=== PATIENT | female | born 1985 | race African-American/Black ===

== ENCOUNTER 2018-03-08 10:58 | Day surgery (SDC) | payer OTHER ==
[~2018-03-08] VITALS: Ht 160 cm; Wt 81.6 kg
[2018-03-08] MEDS ORDERED: SODIUM CHLORIDE 0.9% 1,000 ML IVB ONE (11:06)
[2018-03-08] MEDS ORDERED: ONDANSETRON HCL 4 MG/2 ML VIAL IV ONE ×2 (11:15→16:30)
[2018-03-08] MEDS ORDERED: HYDROmorphone HCL 2 MG/ML VL IV ONE (11:15)
[2018-03-08 11:27] LABS: Basophils # (auto) 0.1 uL; Basophils % (auto) 0.4 % (0.0-2.0); Eosinophils # (auto) 0.1 uL; Eosinophils % (auto) 0.7 % (0.0-7.0); Hematocrit 42.4 % (36.0-46.0); Hemoglobin 14.2 g/dL (12.2-16.2); Lymphocytes # (auto) 2.1 uL; Lymphocytes % (auto) 12.1 % (10.0-50.0); Mean Corpuscular Hemoglobin 31.9 pg (28.0-32.0); Mean Corpuscular Hgb Conc. 33.6 g/dL (32.0-36.0); Mean Corpuscular Volume 95.2 fL (80.0-100.0); Monocytes # (auto) 0.6 uL; Monocytes % (auto) 3.5 % (0.0-12.0); Neutrophils # (auto) 14.1 uL; Neutrophils % (auto) 83.3 % (37.0-80.0); Nucleated Red Blood Cells % 0.1 %; Platelet Count (auto) 282 10^3/uL (140-450); Red Blood Cells 4.46 10^6/uL (4.0-5.20); Red Cell Distribution Width 12.7 % (11.8-14.3); White Blood Cell 16.9 10^3/uL (4.4-10.8)
[2018-03-08 11:45] LABS: BUN/Creatinine Ratio 15.8; Bilirubin, Total 1.6 mg/dL (0.2-1.0); Calcium 9.5 mg/dL (8.5-10.1); Potassium 3.4 mmol/L (3.5-5.1); Total Protein 7.9 g/dL (6.4-8.2)
[2018-03-08 11:46] LABS: INR 0.95 (0.9-1.15); Partial Thromboplastin Time 22.5 sec (22.64-33.71); Prothrombin Time 10.4 sec (9.37-12.3)
[2018-03-08] MEDS ORDERED: LACT. RINGERS/OXYTOCIN 20UNITS 1,000 ML IV ONE (14:15)
[2018-03-08 14:17] LABS: Basophils # (auto) 0.1 uL; Basophils % (auto) 0.3 % (0.0-2.0); Eosinophils # (auto) 0 uL; Hematocrit 37.7 % (36.0-46.0); Hemoglobin 12.6 g/dL (12.2-16.2); Lymphocytes # (auto) 0.6 uL; Lymphocytes % (auto) 3.5 % (10.0-50.0); Mean Corpuscular Hemoglobin 32.1 pg (28.0-32.0); Mean Corpuscular Hgb Conc. 33.4 g/dL (32.0-36.0); Mean Corpuscular Volume 96.2 fL (80.0-100.0); Monocytes # (auto) 0.3 uL; Monocytes % (auto) 1.9 % (0.0-12.0); Neutrophils # (auto) 17.2 uL; Neutrophils % (auto) 94.3 % (37.0-80.0); Platelet Count (auto) 234 10^3/uL (140-450); Red Blood Cells 3.92 10^6/uL (4.0-5.20); Red Cell Distribution Width 12.7 % (11.8-14.3); White Blood Cell 18.3 10^3/uL (4.4-10.8)
[2018-03-08 14:32] LABS: INR 0.96 (0.9-1.15); Prothrombin Time 10.5 sec (9.37-12.3)
[2018-03-08 14:36] LABS: Albumin 3.5 g/dL (3.4-5.0); BUN/Creatinine Ratio 16.7; Bilirubin, Total 1.1 mg/dL (0.2-1.0); Calcium 8.9 mg/dL (8.5-10.1); Potassium 3.7 mmol/L (3.5-5.1)
[2018-03-08 15:36] LABS: Urine Bacteria NONE SEEN /hpf (None Seen); Urine Blood 3+ /uL (Negative); Urine Mucus FEW (None Seen); Urine Specific Gravity 1.026 (1.001-1.035); Urine WBC 10 /hpf (0 - 5)
[2018-03-08] MEDS ORDERED: ceFAZolin 1GM/50ML 50 ML IV ONE (15:46)
[2018-03-08] MEDS ORDERED: fentaNYL CITRATE 100 MCG/2 ML VL ONE (15:54)
[2018-03-08] MEDS ORDERED: MIDAZOLAM HCL 1MG/1ML-2 ML VIAL ONE (15:55)
[2018-03-08] MEDS ORDERED: PROPOFOL 10 MG/ML 20 ML IV ONE (15:55)
[2018-03-08] MEDS ORDERED: hydrALAZINE HCL 20 MG/ML VL IV PRN (16:30)
[2018-03-08] MEDS ORDERED: MORPHINE SULFATE 8mg/ml INJ SDV IV PRN (16:30)
[2018-03-08] MEDS ORDERED: ePHEDrine SULFATE 50 MG/ML AMP IV PRN (16:30)
[2018-03-08] MEDS ORDERED: METHYLERGONOVINE MALEATE 0.2 MG/ML AMP IM ONE (16:31)
[2018-03-08] MEDS ORDERED: LACTATED RINGER'S 1,000 ML IV SCH (16:37)
[2018-03-08] MEDS ORDERED: ONDANSETRON HCL 4 MG/2 ML VIAL IV PRN (16:45)
[2018-03-08 18:00] VITALS: BP 122/71
== END 2018-03-08 18:00 | disposition home or self-care (01) ==
LOC: EDBD 10:58 → ER 11:05 → SUR 11:06 → ER 15:35 → SUR 18:00
PROVIDERS: ATTEND Specialist
DX: O03.9 Complete or unspecified spontaneous abortion without complication (principal); K21.9 Gastro-esophageal reflux disease without esophagitis
CPT/HCPCS: 36415; 59812; 76801; 80053; 81001; 82150; 83690; 84702; 85025; 85610; 85730; 86850; 86900; 86901; J0690; J1170; J2210; J2250; J2405; J2590; J2704; J3010; J7030